=== PATIENT | female | born 1985 | race African-American/Black ===

== ENCOUNTER 2017-10-20 04:17 | Emergency (ER) | payer MEDICAID, OTHER ==
[~2017-10-20] VITALS: Ht 182.9 cm; Wt 130.0 kg
[2017-10-20 04:54] VITALS: BP 128/92
[2017-10-20] MEDS ORDERED: TETANUS, DIPHTHERIA, PERTUSSIS VAC/PF 0.5ML (>7YR OLD) IM ONE (06:45)
[2017-10-20] MEDS ORDERED: LIDOCAINE HCL 1% 20ML VIAL (Pyxis) INJ MC ONE (06:45)
[2017-10-20] MEDS ORDERED: HYDROCODONE/ACETAMINOPHEN 5/325MG TABLET PO ONE (07:00)
[2017-10-20] MEDS ORDERED: BACITRACIN ZINC OINT UDPKT TOP ONE (09:45)
== END 2017-10-20 10:22 | disposition home or self-care (01) ==
LOC: ER 04:17
DX: S61.011A Laceration without foreign body of right thumb without damage to nail, initial encounter (principal); X58.XXXA Exposure to other specified factors, initial encounter; Y93.89 Activity, other specified; Y92.89 Other specified places as the place of occurrence of the external cause; Y99.8 Other external cause status
CPT/HCPCS: 12002; 73130; 81025; 90471; 90715; 99284; J3490; X7700; Z7610

== ENCOUNTER 2017-10-27 18:24 | Emergency (ER) | payer MEDICAID ==
[~2017-10-27] VITALS: Ht 180.3 cm; Wt 127.0 kg
[2017-10-27 18:56] VITALS: BP 141/81
== END 2017-10-28 01:17 | disposition home or self-care (01) ==
LOC: ER 18:24
DX: Z48.00 Encounter for change or removal of nonsurgical wound dressing (principal); L08.9 Local infection of the skin and subcutaneous tissue, unspecified
CPT/HCPCS: 99283

== ENCOUNTER 2017-11-01 16:06 | Emergency (ER) | payer MEDICAID | END 2017-11-01 19:22 | disposition left against medical advice (07) | LOC: ER 17:51 | DX: Z53.21 Procedure and treatment not carried out due to patient leaving prior to being seen by health care provider (principal) ==

== ENCOUNTER 2025-04-03 21:34 | Emergency (ER) | payer MEDICAID, OTHER ==
[~2025-04-03] VITALS: Ht 185.4 cm; Wt 130.0 kg
[2025-04-03 21:55] VITALS: O2SAT 99
[2025-04-04] MEDS: KETOROLAC 15MG/ML VIAL IM ONE (00:28)
[2025-04-04] MEDS: LIDOCAINE 5% PATCH TOP SCH (00:32)
[2025-04-04] MEDS ORDERED: NAPR-1176 MT (01:03)
[2025-04-04] MEDS ORDERED: LIDO-53 TP (01:03)
[2025-04-04 01:14] VITALS: BP 130/83; PULSE 71; RESP 20; TEMP 36.7; O2SAT 100
== END 2025-04-04 02:12 | disposition home or self-care (01) ==
LOC: ER 21:34
DX: M79.645 Pain in left finger(s) (principal); Z79.1 Long term (current) use of non-steroidal anti-inflammatories (NSAID); Z79.899 Other long term (current) drug therapy; V89.2XXA Person injured in unspecified motor-vehicle accident, traffic, initial encounter; Y93.89 Activity, other specified; Y92.89 Other specified places as the place of occurrence of the external cause; Y99.8 Other external cause status
CPT/HCPCS: 99283; 81025; 73130; 96372; J1885